=== PATIENT | male | born 1985 | race American Indian/Alaskan Native ===

== ENCOUNTER 2017-11-17 12:47 | Emergency (ER) | payer OTHER ==
[2017-11-17 12:53] VITALS: BMI 28.1
--- NOTE | 2017-11-17 13:29 | ED PDOC ---
Arrival/HPI - General Chief Complaint: Eye Problem Time Seen by Provider: 11/17/17 13:06 Historian: Patient - History of Present Illness Narrative History of Present Illness (Text): 11/17/17 13:24 32 year old completely blind male, with a past medical history of glaucoma and Retinal detachment, presents to the emergency department with left eye pain, since 2 hours prior. Patient states the pain woke him up this morning. Patient denies any foreign objects entering eye. Patient also denies any pain in the right eye. Patient has had similar eye pain in the past, before and after his retinal detachment surgery 3 years prior. Patient denies any fever, chills, headache, dizziness, chest pain, shortness of breath, cough, abdominal pain, nausea, vomiting, diarrhea, back pain, neck pain, urinary/bowel changes, or any other complaint. 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) Hx Glaucoma: Yes (Post-Trauma to the right Eye) - Renal Hx Renal Disorder: No - Endocrine/Metabolic Hx Endocrine Disorders: No - Hematological/Oncological Hx Blood Disorders: No - Integumentary Hx Dermatological Disorder: No - Musculoskeletal/Rheumatological Hx Falls: No - Genitourinary/Gynecological Hx Genitourinary Disorders: No - Psychiatric Hx Depression: No Hx Substance Use: No - Past Surgical History Past Surgical History: Non-Contributing - Surgical History Hx Eye Surgery: Yes (retinal surgery) - Anesthesia Hx Anesthesia: Yes Hx Anesthesia Reactions: No Hx Malignant Hyperthermia: No - Suicidal Assessment Feels Threatened In Home Enviroment: No Family/Social History - Physician Review Nursing Documentation Reviewed: Yes Family/Social History: No Known Family HX Smoking Status: Heavy Smoker > 10 Cigarettes Daily Hx Alcohol Use: No Hx Substance Use: No Hx Substance Use Treatment: No Allergies/Home Meds Allergies/Adverse Reactions: Allergies No Known Allergies Allergy (Verified 12/18/14 10:28) Review of Systems - Physician Review All systems were reviewed & negative as marked: Yes - Review of Systems Constitutional: Normal. absent: Fevers, Night Sweats Eyes: Eye Pain ENT: Normal Respiratory: Normal. absent: SOB, Cough Cardiovascular: Normal. absent: Chest Pain Gastrointestinal: Normal. absent: Abdominal Pain, Diarrhea, Nausea, Vomiting Genitourinary Male: Normal. absent: Urinary Output Changes Musculoskeletal: Normal. absent: Back Pain, Neck Pain Skin: Normal Neurological: Normal. absent: Headache, Dizziness Endocrine: Normal Hemo/Lymphatic: Normal Psychiatric: Normal Physical Exam - Physical Exam Narrative Physical Exam (Text): 11/17/17 13:30 Gen: VS reviewed, alert, well developed, well nourished, nontoxic, mild distress. ENT: normal pharynx. Eye: Left eye: diffuse tenderness, moderate redness of eye orbit and large portion of cornea, focal area of abnormal Fluorescein uptake over central pupil , no proptosis of eye, pain with extra ocular eye movement, no rash on surrounding area. Right eye: opacifaction of right pupil Neck: no JVD, supple, no adenopathy. CV: regular rate, regular rhythm, no rubs, no murmur, no gallops, S1, S2, pulses equal and strong. Pulm: no distress, clear to auscultation, no wheeze, no rhonchi, breath sounds equal, no rales. Abd: soft, nontender, no guarding, no rebound, no rigidity, normal bowel sounds. Ext: no edema. Skin: good color, no rash, no cyanosis. Psych: responds appropriately to questions, normal affect. Neuro: oriented x 3, CN2-12 intact grossly, motor intact, sensation intact. Medical Decision Making ED Course and Treatment: 11/17/17 13:30 Impression: 32 year old completely blind male, presents to the emergency department with left eye pain. Plan: -- Labs -- Morphine -- Reassess and disposition Prior Visits: Notes and results from previous visits were reviewed. Progress Notes: 11/17/17 13:56 IOP measured at 35 mmhg 11/17/17 13:57 11/17/17 14:[address] lynn, ophthalmology, would like pt to come to office for acute eval and tx. Patient states he will walk to the office now and has requested a close friend to assist. 08/13/18 14:42 - Lab Interpretations Lab Results: 11/17/17 13:49 Lab Results 11/17/17 13:49: WBC 10.9, RBC 5.60, Hgb 13.1 L, Hct 39.3 L, MCV 70.2 L, MCH 23.4 L, MCHC 33.3, RDW 15.2 H, Plt Count 249, MPV 10.3, Gran % 67.3, Lymph % ( Auto) 24.2, [place] % (Auto) 6.0, Eos % (Auto) 2.2, Baso % (Auto) 0.3, Gran # 7.34 H, Lymph # (Auto) 2.6, [place] # (Auto) 0.7 H, Eos # (Auto) 0.2, Baso # (Auto) 0.03 - Medication Orders Current Medication Orders: Discontinued Medications Morphine Sulfate (Morphine) 4 mg IVP STAT STA Stop: 11/17/17 13:42 - Scribe Statement The provider has reviewed the documentation as recorded by the Scribe Mich Kelly All medical record entries made by the Scribe were at my direction and personally dictated by me. I have reviewed the chart and agree that the record accurately reflects my personal performance of the history, physical exam, medical decision making, and the department course for this patient. I have also personally directed, reviewed, and agree with the discharge instructions and disposition. Disposition/Present on Arrival - Present on Arrival Any Indicators Present on Arrival: No History of DVT/PE: No History of Uncontrolled Diabetes: No Urinary Catheter: No History of Decub. Ulcer: No History Surgical Site Infection Following: None - Disposition Have Diagnosis and Disposition been Completed?: Yes Diagnosis: Glaucoma (increased eye pressure) Disposition: HOME/ ROUTINE Disposition Time: 14:43 Patient Plan: Discharge Condition: FAIR Print Language: T[place] Additional Instructions: KAYLEEN HAMPTON, thank you for letting us take care of you today. Your provider was Dr. Rodolfo Jeter and you were treated for EYE PAIN/GLAUCOMA. The emergency medical care you received today was directed at your acute symptoms. If you were prescribed any medication, please fill it and take as directed. It may take several days for your symptoms to resolve. Return to the Emergency Department if your symptoms worsen, do not improve, or if you have any other problems. Please contact your doctor or call one of the physicians/clinics you have been referred to that are listed on the Patient Visit Information form that is included in your discharge packet. Bring any paperwork you were given at discharge with you along with any medications you are taking to your follow up visit. Our treatment cannot replace ongoing medical care by a primary care provider outside of the emergency department. Thank you for allowing the [facility] team to be part of your care today. If you had an X-Ray or CT scan: A Radiologist will review the ED reading if any change in treatment is needed we will contact you. If you had a blood, urine, or wound culture: It will take several days for the results, if any change in treatment is needed we will contact you. If you had an STI test: It will take 48 hours for the results. Please call after 1 week if you have not heard back. Referrals: FAMILY PROVIDER,NO [Primary Care Provider] - Follow up with primary Yung Lynn [Staff Provider] - Follow up with primary Forms: [employer] (Azerbaijani)
[2017-11-17] MEDS ORDERED: Morphine 4 mg/ml ISec IVP STA (13:41)
[2017-11-17 14:19] LABS: BASO # 0.03 K/mm3 (0.0-2.0); BASO % 0.3 % (0.0-3.0); EOS # 0.2 (0.0-0.7); EOS % 2.2 % (1.5-5.0); GRAN # 7.34 (1.4-6.5); GRAN % 67.3 % (50.0-68.0); HEMOGLOBIN 13.1 g/dL (14.0-18.0); LYMPH # 2.6 (1.2-3.4); LYMPH % 24.2 % (22.0-35.0); MEAN CELL VOLUME 70.2 fl (80.0-105.0); MEAN CORPUSCULAR HEMOGLOBIN 23.4 pg (25.0-35.0); MEAN CORPUSCULAR HGB CONC 33.3 g/dl (31.0-37.0); MEAN PLATELET VOLUME 10.3 fl (7.0-11.0); MONO # 0.7 (0.1-0.6); RBC 5.6 10^6/uL (3.5-6.1); RED CELL DISTRIBUTION WIDTH 15.2 % (11.5-14.5); WHITE BLOOD COUNT 10.9 10^3/ul (4.5-11.0)
[2017-11-17 14:51] VITALS: BP 151/97; RESP 18; TEMP 98
[2017-11-17 14:52] VITALS: PULSE 70; O2SAT 98
== END 2017-11-17 14:52 | disposition home or self-care (01) ==
LOC: ED 12:47
DX: H40.9 Unspecified glaucoma (principal)

== ENCOUNTER 2017-11-23 10:41 | Emergency (ER) | payer OTHER ==
[2017-11-23 10:41] VITALS: BMI 28.1
[2017-11-23 11:29] VITALS: RESP 18; TEMP 97.8
[2017-11-23] MEDS ORDERED: Lidocaine 5% Patch TD STA (11:31)
--- NOTE | 2017-11-23 11:54 | ED PDOC ---
Arrival/HPI - General Chief Complaint: Back Pain Time Seen by Provider: 11/23/17 11:30 Historian: Patient - History of Present Illness Narrative History of Present Illness (Text): 11/23/17 11:38 32 M with PMHx of retinal surgery presents with cc of aching lower back pain for past 6 days, notes pain shoots down to tailbone. As per pt, he was walking home from doctor's office on Friday when lower back pain suddenly started. Patient reports pain worsens when sitting too long and has difficulty sitting down to use bathroom. Patient states he took a muscle relaxer, with no significant relief. Patient notes he has never had these symptoms before. Patient denies any injury, weakness, numbness, any known drug allergies, or any other complaints. 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) Hx Cataracts: Yes Hx Glaucoma: Yes (Post-Trauma to the right Eye) Other/Comment: Retinal detachment - Renal Hx Renal Disorder: No - Endocrine/Metabolic Hx Endocrine Disorders: No - Hematological/Oncological Hx Blood Disorders: No - Integumentary Hx Dermatological Disorder: No - Musculoskeletal/Rheumatological Hx Falls: No - Genitourinary/Gynecological Hx Genitourinary Disorders: No - Psychiatric Hx Depression: No Hx Substance Use: Yes - Past Surgical History Past Surgical History: Non-Contributing - Surgical History Hx Eye Surgery: Yes (retinal surgery) Other/Comment: cataract sx - Anesthesia Hx Anesthesia: Yes Hx Anesthesia Reactions: No Hx Malignant Hyperthermia: No - Suicidal Assessment Feels Threatened In Home Enviroment: No Family/Social History - Physician Review Nursing Documentation Reviewed: Yes Family/Social History: No Known Family HX Smoking Status: Light Smoker < 10 Cigarettes Daily Hx Alcohol Use: Yes Frequency of alcohol use: Socially Hx Substance Use: Yes Substance used: marijuana Hx Substance Use Treatment: No Allergies/Home Meds Allergies/Adverse Reactions: Allergies No Known Allergies Allergy (Verified 12/18/14 10:28) Review of Systems - Physician Review All systems were reviewed & negative as marked: Yes (All other systems negative except that noted in the HPI.) Physical Exam - Physical Exam Narrative Physical Exam (Text): 11/23/17 11:38 Gen: VS reviewed, alert, well developed, well nourished, nontoxic, mild distress. ENT: normal pharynx. Neck: no JVD, supple, no adenopathy. CV: regular rate, regular rhythm, no rubs, no murmur, no gallops, S1, S2, pulses equal and strong. Pulm: no distress, clear to auscultation, no wheeze, no rhonchi, breath sounds equal, no rales. Abd: soft, nontender, no guarding, no rebound, no rigidity, normal bowel sounds. Ext: no edema. Skin: good color, no rash, no cyanosis. Psych: responds appropriately to questions, normal affect. Neuro: oriented x 3, CN2-12 intact grossly, motor intact, sensation intact. Physical exam is normal except: --Moderate to severe tenderness, diffuse lower back at level of SI joint. --No bony abnormality --Significant diminished ROM at hip, secondary to pain Vital Signs Reviewed: Yes Vital Signs Temp Pulse Resp BP Pulse Ox 11/23/17 14:04 72 18 110/70 100 11/23/17 11:28 97.8 F 78 18 116/74 98 Temperature: Afebrile Blood Pressure: Normal Pulse: Regular Respiratory Rate: Normal Appearance: Positive for: Well-Appearing, Non-Toxic Pain Distress: Mild Mental Status: Positive for: Alert and Oriented X 3 Medical Decision Making ED Course and Treatment: 11/23/17 11:38 Plan: -- Flexeril -- Lidoderm -- Toradol -- Tylenol 325mg -- LS Spine with OBL > 18 yrs old -- Reassess and disposition Prior Visits: Notes and results from previous visits were reviewed. Progress Notes: - RAD Interpretation Radiology Orders: 11/23/17 12:33 LS SPINE WITH OBL > 18 YRS OLD [RAD] Stat - Medication Orders Current Medication Orders: Discontinued Medications Acetaminophen (Tylenol 325mg Tab) 975 mg PO STAT STA Stop: 11/23/17 11:32 Last Admin: 11/23/17 11:41 Dose: 975 mg MAR Pain/Vitals Document 11/23/17 11:41 GMD (Rec: 11/23/17 11:41 GMD [id number]) Pain Reassessment Is This A Pain ReAssessment? No Cyclobenzaprine HCl (Flexeril) 5 mg PO STAT STA Stop: 11/23/17 11:32 Last Admin: 11/23/17 11:41 Dose: 5 mg Ketorolac Tromethamine (Toradol) 60 mg IM STAT STA Stop: 11/23/17 11:32 Last Admin: 11/23/17 11:42 Dose: 60 mg MAR Pain Assessment Document 11/23/17 11:42 GMD (Rec: 11/23/17 11:42 GMD [id number]) Pain Reassessment Is this a pain reassessment? No Presence of Pain Presence of Pain Yes Pain Scale Used Pain Scale Used Numeric Location Upper or Lower Lower Pain Location Body Site Back IM Administration Charges Document 11/23/17 11:42 GMD (Rec: 11/23/17 11:42 GMD [id number]) Injection Site MAR Injection Site Left Deltoid Charges for Administration # of IM Administrations 1 Lidocaine (Lidoderm) 1 ea TD DAILY STA Stop: 11/23/17 11:32 Last Admin: 11/23/17 11:41 Dose: 1 ea MAR Transdermal Patch Site Document 11/23/17 11:41 GMD (Rec: 11/23/17 11:42 GMD [id number]) Transdermal Patch Site Transdermal Patch Site Left Lower Back - Scribe Statement The provider has reviewed the documentation as recorded by the Scribluann Rhodes All medical record entries made by the Samiribluann were at my direction and personally dictated by me. I have reviewed the chart and agree that the record accurately reflects my personal performance of the history, physical exam, medical decision making, and the department course for this patient. I have also personally directed, reviewed, and agree with the discharge instructions and disposition. Disposition/Present on Arrival - Present on Arrival Any Indicators Present on Arrival: No History of DVT/PE: No History of Uncontrolled Diabetes: No Urinary Catheter: No History of Decub. Ulcer: No History Surgical Site Infection Following: None - Disposition Have Diagnosis and Disposition been Completed?: Yes Diagnosis: Low back pain Disposition: HOME/ ROUTINE Disposition Time: 15:13 Condition: STABLE Discharge Instructions (ExitCare): Low Back Pain in Adults Print Language: [place] ISLAND[place] Additional Instructions: KAYLEEN HAMPTON, thank you for letting us take care of you today. Your provider was Dr. Rodolfo Jeter and you were treated for LOWER BACK PAIN. The emergency medical care you received today was directed at your acute symptoms. If you were prescribed any medication, please fill it and take as directed. It may take several days for your symptoms to resolve. Return to the Emergency Department if your symptoms worsen, do not improve, or if you have any other problems. Please contact your doctor or call one of the physicians/clinics you have been referred to that are listed on the Patient Visit Information form that is included in your discharge packet. Bring any paperwork you were given at discharge with you along with any medications you are taking to your follow up visit. Our treatment cannot replace ongoing medical care by a primary care provider outside of the emergency department. Thank you for allowing the [facility] team to be part of your care today. If you had an X-Ray or CT scan: A Radiologist will review the ED reading if any change in treatment is needed we will contact you. If you had a blood, urine, or wound culture: It will take several days for the results, if any change in treatment is needed we will contact you. If you had an STI test: It will take 48 hours for the results. Please call after 1 week if you have not heard back. Prescriptions: Cyclobenzaprine [Flexeril] 5 mg PO TID #15 tab Ibuprofen [Motrin Tab] 600 mg PO QID #42 tab Prednisone [Deltasone] 20 mg PO DAILY #14 tablet Referrals: [facility] [Outside] - Follow up with primary Kassie Rand MD [Medical Doctor] - Follow up with primary Forms: [employer] (Argentine)
[2017-11-23 14:04] VITALS: BP 110/70; PULSE 72; O2SAT 100
--- NOTE | 2017-11-23 16:06 | RAD ---
Date of service: 11/23/2017 PROCEDURE: Radiographs of the Lumbar Spine. HISTORY: Low back pain COMPARISON: No prior. FINDINGS: BONES: Normal alignment. No listhesis. No fracture. DISC SPACES: Unremarkable. OTHER FINDINGS: None. IMPRESSION: Unremarkable radiographs of the lumbar spine.
== END 2017-11-23 14:09 | disposition home or self-care (01) ==
LOC: ED 10:41
DX: M54.5 Low back pain (principal); F17.210 Nicotine dependence, cigarettes, uncomplicated
CPT/HCPCS: 72110; 96372; 99284; J1885

== ENCOUNTER 2018-01-12 14:11 | Emergency (ER) | payer OTHER ==
[2018-01-12 14:12] VITALS: BMI 28.1
[2018-01-12 14:20] VITALS: BP 140/88; PULSE 77; RESP 18; TEMP 97.8; O2SAT 100
--- NOTE | 2018-01-12 15:36 | ED PDOC ---
Arrival/HPI - General Chief Complaint: Eye Problem Time Seen by Provider: 01/12/18 14:36 Historian: Patient - History of Present Illness Narrative History of Present Illness (Text): 01/12/18 15:30 Patient is a 32 year old completely blind male, with a past medical history of glaucoma and Retinal detachment, presents to the emergency department with left eye pain. One hour prior to arrival patient was cooking hamburgers and guamanian fries when grease popped up and landed in his left eye. He has been in severe pain seen. He attempted to put a numbing eye drop in but states it only made it worse. Patient had no pain prior to grease getting in his eye. Patient has no other complaints at this time. 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) Hx Cataracts: Yes Hx Glaucoma: Yes (Post-Trauma to the right Eye) Other/Comment: Retinal detachment - Renal Hx Renal Disorder: No - Endocrine/Metabolic Hx Endocrine Disorders: No - Hematological/Oncological Hx Blood Disorders: No - Integumentary Hx Dermatological Disorder: No - Musculoskeletal/Rheumatological Hx Falls: No - Genitourinary/Gynecological Hx Genitourinary Disorders: No - Psychiatric Hx Depression: No Hx Substance Use: Yes - Past Surgical History Past Surgical History: Non-Contributing - Surgical History Hx Eye Surgery: Yes (retinal surgery) Other/Comment: cataract sx - Anesthesia Hx Anesthesia: Yes Hx Anesthesia Reactions: No Hx Malignant Hyperthermia: No - Suicidal Assessment Feels Threatened In Home Enviroment: No Family/Social History - Physician Review Nursing Documentation Reviewed: Yes Family/Social History: Unknown Family HX Smoking Status: Light Smoker < 10 Cigarettes Daily Hx Alcohol Use: Yes Hx Substance Use: Yes Substance used: marijuana Hx Substance Use Treatment: No Allergies/Home Meds Allergies/Adverse Reactions: Allergies No Known Allergies Allergy (Verified 12/18/14 10:28) Review of Systems - Physician Review All systems were reviewed & negative as marked: Yes - Review of Systems Constitutional: Normal Eyes: Eye Pain (left ) ENT: Normal Respiratory: Normal Cardiovascular: Normal Gastrointestinal: Normal Musculoskeletal: Normal Neurological: Normal Endocrine: Normal Psychiatric: Normal Physical Exam Vital Signs Reviewed: Yes Vital Signs Temp Pulse Resp BP Pulse Ox 01/12/18 14:12 97.8 F 77 18 140/88 100 Temperature: Afebrile Blood Pressure: Normal Pulse: Regular Respiratory Rate: Normal Appearance: Positive for: Well-Appearing, Non-Toxic, Uncomfortable Pain Distress: Mild Mental Status: Positive for: Alert and Oriented X 3 - Systems Exam Head: Present: Atraumatic, Normocephalic Pupils: Present: Other (completely blind) Extroacular Muscles: Present: Other (completely blind) Conjunctiva: Present: Injected Mouth: Present: Moist Mucous Membranes Medical Decision Making ED Course and Treatment: 01/12/18 15:53 Patient is a 32 year old completely blind male, with a past medical history of glaucoma and Retinal detachment, presenting to the emergency department with left eye pain after cooking grease got into his eye. Patient is completely blind at baseline. Tetracaine 2 drops placed in eye for pain pH of patient's eye is 8.0 Attempting to flush patient's eye with NS but patient is refusing. Discussed with patient the importance of flushing his eye. Patient agreed, NS running. Patient Eloped. Disposition/Present on Arrival - Present on Arrival Any Indicators Present on Arrival: No History of DVT/PE: No History of Uncontrolled Diabetes: No Urinary Catheter: No History of Decub. Ulcer: No History Surgical Site Infection Following: None - Disposition Have Diagnosis and Disposition been Completed?: Yes Diagnosis: Eye injury Disposition: ELOPEMENT - ER ONLY Disposition Time: 16:46 Condition: UNKNOWN Forms: [employer] (Greek)
== END 2018-01-12 17:10 | disposition left against medical advice (07) ==
LOC: ED 14:11
DX: S05.92XA Unspecified injury of left eye and orbit, initial encounter (principal); X10.2XXA Contact with fats and cooking oils, initial encounter; Y93.G3 Activity, cooking and baking